=== PATIENT | male | born 1965 | race Caucasian/White ===

== ENCOUNTER 2020-10-31 14:21 | Inpatient (IN) ==
[2020-10-31] MEDS ORDERED: Acetaminophen 325 MG TABLET PO PRN (17:40)
[2020-10-31] MEDS ORDERED: Ondansetron 4 MG/2 ML VIAL IVP PRN (17:40)
[2020-10-31] MEDS ORDERED: Naloxone 0.4 MG/ML INJ IVP PRN (17:40)
[2020-10-31 17:56] LABS: ABG Base Excess -1 mEq/L (-2 to 3); ABG HCO3 25 mEq/L (21-27); ABG Oxygen Saturation 94 % (95-98); ABG PCO2 45 mmHg (35-45); ABG PH 7.35 pH Units (7.32-7.45); ABG PO2 75 mmHg (85-104); ABG TCO2 26 mEq/L (20-26)
[2020-10-31] MEDS ORDERED: Gadolinium Contrast Agent (WT Based) IV PRN (18:04)
[2020-10-31 19:02] LABS: INR 1.2
[2020-10-31 19:31] LABS: BUN/Creatinine Ratio 45 (6-26); Blood Urea Nitrogen 37 mg/dL (6-20); Calcium 9.1 mg/dL (8.6-10.3); Carbon Dioxide 20 mEq/L (23-29); Chloride 111 mEq/L (98-107); Glucose 94 mg/dL (70-105); Magnesium 1.7 mg/dL (1.6-2.6); Osmolality,Calculated 302 (280-300); Phosphorous 3.8 mg/dL (2.7-4.5); Potassium 4.1 mEq/L (3.5-5.1); Sodium 142 mEq/L (136-145); Troponin I 0.13 ng/mL (< 0.04); eGFR For African Americans > 60 (> 60); eGFR For Non-African Americans > 60 (> 60)
[2020-10-31 19:42] LABS: Phenytoin (Dilantin) 19.7 mcg/mL (10.0-20.0)
[2020-10-31] MEDS: 0.9 % Sodium Chloride 1,000 ML IVC SCH (20:29)
[2020-10-31 20:49] LABS: Basophils # 0.1 K/mcL (0.0-0.2); Basophils % 0.4 %; Eosinophils # 0.4 K/mcL (0.0-0.6); Eosinophils % 2.2 %; Hematocrit 38.6 % (37.5-50.1); Hemoglobin 12.2 g/dL (12.9-16.9); Immature Granulocytes % 0.4 % (0-4); Lymphocytes # 1.2 K/mcL (0.6-4.6); Lymphocytes % 6.6 %; Mean Corpuscular HGB Conc 31.6 g/dL (31.6-35.5); Mean Corpuscular Hemoglobin 29.8 pg (28.0-33.3); Mean Corpuscular Volume 94.4 fL (83.0-100.0); Mean Platelet Volume 9.5 fL (9.4-12.4); Monocytes # 1.6 K/mcL (0.0-1.3); Monocytes % 8.8 %; Neutrophils # 14.8 K/mcL (1.6-8.9); Platelet Count 240 K/mcL (140-400); Red Blood Count 4.09 M/mcL (4.19-5.50); Segmented Neutrophils % 81.6 %; White Blood Count 18.1 K/mcL (4.3-11.1)
[2020-11-01 01:09] LABS: Basophils # 0.1 K/mcL (0.0-0.2); Basophils % 0.4 %; Eosinophils # 0.3 K/mcL (0.0-0.6); Eosinophils % 1.6 %; Hematocrit 38.3 % (37.5-50.1); Hemoglobin 12.1 g/dL (12.9-16.9); Immature Granulocytes % 0.5 % (0-4); Lymphocytes # 1.1 K/mcL (0.6-4.6); Lymphocytes % 5.9 %; Mean Corpuscular HGB Conc 31.6 g/dL (31.6-35.5); Mean Corpuscular Volume 94.8 fL (83.0-100.0); Mean Platelet Volume 9.8 fL (9.4-12.4); Monocytes # 1.4 K/mcL (0.0-1.3); Monocytes % 7.3 %; Neutrophils # 16.3 K/mcL (1.6-8.9); Platelet Count 250 K/mcL (140-400); Red Blood Count 4.04 M/mcL (4.19-5.50); Segmented Neutrophils % 84.3 %; White Blood Count 19.3 K/mcL (4.3-11.1)
[2020-11-01 01:35] LABS: BUN/Creatinine Ratio 44 (6-26); Blood Urea Nitrogen 35 mg/dL (6-20); Calcium 9.4 mg/dL (8.6-10.3); Carbon Dioxide 21 mEq/L (23-29); Chloride 111 mEq/L (98-107); Glucose 98 mg/dL (70-105); Magnesium 1.7 mg/dL (1.6-2.6); Osmolality,Calculated 306 (280-300); Potassium 4.1 mEq/L (3.5-5.1); Sodium 144 mEq/L (136-145); Troponin I 0.06 ng/mL (< 0.04); eGFR For African Americans > 60 (> 60); eGFR For Non-African Americans > 60 (> 60)
[2020-11-01] MEDS: 0.9 % Sodium Chloride 1,000 ML IVC SCH ×2 (06:07→16:00)
[2020-11-01] MEDS ORDERED: Gadolinium Contrast Agent (WT Based) IV PRN (07:22)
[2020-11-01] MEDS: Vancomycin 1,250 MG/262.5 ML IV.SOLN IVPB SCH ×2 (08:33→19:34)
[2020-11-01] MEDS: Piperacillin/Tazobactam 3.375 GM in 0.9 % Sodium Chloride Mini Bag 100 ML IVPB SCH ×3 (08:34→23:33)
[2020-11-01] MEDS ORDERED: cefTRIAXone 1,000 MG in 0.9 % Sodium Chloride Mini Bag 100 ML IVPB SCH (09:00)
[2020-11-01] MEDS: Phenytoin 100 MG in Equashield Syringe 1 EACH IVP SCH ×2 (09:33→16:03)
[2020-11-01] MEDS: *HR* Labetalol 20 MG/4 ML SYRINGE IVP SCH ×2 (13:15→18:06)
[2020-11-01 18:46] LABS: Amphetamine Screen,Urine Negative ng/mL (Cutoff=1000); Barbiturate Screen,Urine Negative ng/mL (Cutoff=200); Benzodiazepines Screen,Urine Negative ng/mL (Cutoff=200); Cannabinoid Screen,Urine Negative ng/mL (Cutoff = 50); Cocaine Screen,Urine Negative ng/mL (Cutoff= 300); Opiate Screen,Urine Negative ng/mL (Cutoff=300); Phencyclidine Screen,Urine Negative ng/mL (Cutoff=25)
[2020-11-02] MEDS: 0.9 % Sodium Chloride 1,000 ML IVC SCH ×3 (00:06→23:49)
[2020-11-02] MEDS: Phenytoin 100 MG in Equashield Syringe 1 EACH IVP SCH ×4 (00:07→23:57)
[2020-11-02] MEDS: *HR* Labetalol 20 MG/4 ML SYRINGE IVP SCH ×5 (03:32→23:55)
[2020-11-02] MEDS: Piperacillin/Tazobactam 3.375 GM in 0.9 % Sodium Chloride Mini Bag 100 ML IVPB SCH ×3 (08:09→23:54)
[2020-11-02] MEDS: Vancomycin 1,250 MG/262.5 ML IV.SOLN IVPB SCH (08:11)
[2020-11-02] MEDS ORDERED: E-Z-PAQUE (BARIUM SULF) SUSP 1 BOTTLE PO ONE (13:33)
[2020-11-02] MEDS ORDERED: E-Z-HD (BARIUM SULF) SUSPENSION PO ONE (13:33)
[2020-11-02] MEDS ORDERED: Morphine Sulfate 2 MG/ML SYRINGE IVP ONE (13:37)
[2020-11-02] MEDS ORDERED: *HR* LORazepam 2 MG/ML VIAL IVP ONE (13:37)
[2020-11-02 20:48] LABS: Basophils # 0.1 K/mcL (0.0-0.2); Basophils % 0.5 %; Eosinophils # 0.3 K/mcL (0.0-0.6); Eosinophils % 1.6 %; Hematocrit 34.1 % (37.5-50.1); Hemoglobin 11.2 g/dL (12.9-16.9); Immature Granulocytes % 0.5 % (0-4); Lymphocytes # 1.3 K/mcL (0.6-4.6); Lymphocytes % 6.8 %; Mean Corpuscular HGB Conc 32.8 g/dL (31.6-35.5); Mean Corpuscular Hemoglobin 30.8 pg (28.0-33.3); Mean Corpuscular Volume 93.7 fL (83.0-100.0); Mean Platelet Volume 9.4 fL (9.4-12.4); Monocytes # 1.5 K/mcL (0.0-1.3); Neutrophils # 15.9 K/mcL (1.6-8.9); Platelet Count 254 K/mcL (140-400); Red Blood Count 3.64 M/mcL (4.19-5.50); Red Cell Distribution Width 14.1 % (11.5-14.5); Segmented Neutrophils % 82.6 %; White Blood Count 19.2 K/mcL (4.3-11.1)
[2020-11-02 21:07] LABS: BUN/Creatinine Ratio 37 (6-26); Blood Urea Nitrogen 23 mg/dL (6-20); Calcium 8.6 mg/dL (8.6-10.3); Carbon Dioxide 19 mEq/L (23-29); Chloride 116 mEq/L (98-107); Glucose 127 mg/dL (70-105); Magnesium 1.6 mg/dL (1.6-2.6); Osmolality,Calculated 311 (280-300); Potassium 3.1 mEq/L (3.5-5.1); Sodium 148 mEq/L (136-145); eGFR For African Americans > 60 (> 60); eGFR For Non-African Americans > 60 (> 60)
[2020-11-02] MEDS: Vancomycin 1,500 MG/265 ML IV.SOLN IVPB SCH (21:58)
[2020-11-03] MEDS: *HR* Labetalol 20 MG/4 ML SYRINGE IVP SCH ×3 (06:18→20:23)
[2020-11-03 07:02] LABS: Basophils # 0.1 K/mcL (0.0-0.2); Basophils % 0.5 %; Eosinophils # 0.4 K/mcL (0.0-0.6); Hematocrit 34.4 % (37.5-50.1); Hemoglobin 11.1 g/dL (12.9-16.9); Immature Granulocytes % 0.5 % (0-4); Lymphocytes # 1.4 K/mcL (0.6-4.6); Lymphocytes % 9.4 %; Mean Corpuscular HGB Conc 32.3 g/dL (31.6-35.5); Mean Corpuscular Hemoglobin 30.2 pg (28.0-33.3); Mean Corpuscular Volume 93.7 fL (83.0-100.0); Mean Platelet Volume 9.5 fL (9.4-12.4); Monocytes # 1.3 K/mcL (0.0-1.3); Monocytes % 8.8 %; Neutrophils # 11.4 K/mcL (1.6-8.9); Platelet Count 269 K/mcL (140-400); Red Blood Count 3.67 M/mcL (4.19-5.50); Red Cell Distribution Width 14.4 % (11.5-14.5); Segmented Neutrophils % 77.8 %; White Blood Count 14.6 K/mcL (4.3-11.1)
[2020-11-03] MEDS: Piperacillin/Tazobactam 3.375 GM in 0.9 % Sodium Chloride Mini Bag 100 ML IVPB SCH (07:21)
[2020-11-03] MEDS: Phenytoin 100 MG in Equashield Syringe 1 EACH IVP SCH ×2 (09:17→20:22)
[2020-11-03] MEDS: Vancomycin 1,500 MG/265 ML IV.SOLN IVPB SCH (09:18)
[2020-11-03] MEDS: 0.9 % Sodium Chloride 1,000 ML IVC SCH (09:26)
[2020-11-03] MEDS ORDERED: GADOBUTROL 30 MMOL/30 ML VIAL IVP ONE (11:23)
[2020-11-03] MEDS ORDERED: *HR* LORazepam 2 MG/ML VIAL IVP ONE ×2 (13:40→17:51)
[2020-11-03] MEDS ORDERED: Haloperidol Lactate 5 MG/ML VIAL IVP ONE ×2 (13:41→17:51)
[2020-11-04] MEDS: *HR* Labetalol 20 MG/4 ML SYRINGE IVP SCH ×4 (01:23→17:22)
[2020-11-04 01:53] LABS: Basophils # 0.1 K/mcL (0.0-0.2); Basophils % 0.6 %; Eosinophils # 0.6 K/mcL (0.0-0.6); Hematocrit 35.3 % (37.5-50.1); Hemoglobin 11.5 g/dL (12.9-16.9); Immature Granulocytes % 0.5 % (0-4); Lymphocytes # 1.4 K/mcL (0.6-4.6); Lymphocytes % 9.9 %; Mean Corpuscular HGB Conc 32.6 g/dL (31.6-35.5); Mean Corpuscular Hemoglobin 30.3 pg (28.0-33.3); Mean Corpuscular Volume 92.9 fL (83.0-100.0); Mean Platelet Volume 9.3 fL (9.4-12.4); Monocytes # 1.3 K/mcL (0.0-1.3); Monocytes % 9.3 %; Neutrophils # 10.4 K/mcL (1.6-8.9); Platelet Count 286 K/mcL (140-400); Red Cell Distribution Width 14.6 % (11.5-14.5); Segmented Neutrophils % 75.7 %; White Blood Count 13.8 K/mcL (4.3-11.1)
[2020-11-04 03:07] LABS: BUN/Creatinine Ratio 32 (6-26); Blood Urea Nitrogen 19 mg/dL (6-20); eGFR For African Americans > 60 (> 60); eGFR For Non-African Americans > 60 (> 60)
[2020-11-04] MEDS: Phenytoin 100 MG in Equashield Syringe 1 EACH IVP SCH ×3 (04:09→20:48)
[2020-11-04] MEDS: 0.9 % Sodium Chloride 1,000 ML IVC SCH ×3 (04:12→12:35)
[2020-11-04] MEDS: Ampicillin/Sulbactam 3,000 MG in 0.9 % Sodium Chloride Mini Bag 100 ML IVPB SCH ×2 (12:35→17:22)
[2020-11-04] MEDS: Vancomycin 1,250 MG/262.5 ML IV.SOLN IVPB SCH (19:38)
[2020-11-05] MEDS: Ampicillin/Sulbactam 3,000 MG in 0.9 % Sodium Chloride Mini Bag 100 ML IVPB SCH ×3 (00:47→11:33)
[2020-11-05] MEDS: 0.9 % Sodium Chloride 1,000 ML IVC SCH (00:47)
[2020-11-05] MEDS: *HR* Labetalol 20 MG/4 ML SYRINGE IVP SCH ×4 (00:48→18:05)
[2020-11-05] MEDS: Phenytoin 100 MG in Equashield Syringe 1 EACH IVP SCH ×3 (02:18→20:15)
[2020-11-05 05:24] LABS: Hematocrit 32.9 % (37.5-50.1); Hemoglobin 10.6 g/dL (12.9-16.9); Mean Corpuscular HGB Conc 32.2 g/dL (31.6-35.5); Mean Corpuscular Hemoglobin 30.1 pg (28.0-33.3); Mean Corpuscular Volume 93.5 fL (83.0-100.0); Mean Platelet Volume 9.3 fL (9.4-12.4); Platelet Count 296 K/mcL (140-400); Red Blood Count 3.52 M/mcL (4.19-5.50); Red Cell Distribution Width 14.8 % (11.5-14.5); White Blood Count 10.6 K/mcL (4.3-11.1)
[2020-11-05 05:37] LABS: INR 1.5; Prothrombin Time 17.3 Seconds (9.4-12.1)
[2020-11-05 05:42] LABS: BUN/Creatinine Ratio 33 (6-26); Blood Urea Nitrogen 19 mg/dL (6-20); Calcium 8.6 mg/dL (8.6-10.3); Carbon Dioxide 21 mEq/L (23-29); Chloride 122 mEq/L (98-107); Glucose 101 mg/dL (70-105); Magnesium 1.7 mg/dL (1.6-2.6); Osmolality,Calculated 324 (280-300); Potassium 2.7 mEq/L (3.5-5.1); Sodium 156 mEq/L (136-145); eGFR For African Americans > 60 (> 60); eGFR For Non-African Americans > 60 (> 60)
[2020-11-05] MEDS ORDERED: D5% in Water 1,000 ML IVC SCH (08:30)
[2020-11-05] MEDS ORDERED: Perflutren Lipid Microsphere 1.3 ML in 0.9 % Sodium Chloride 8.7 ML IVP PRN (08:36)
[2020-11-05] MEDS ORDERED: Polymyxin B Sulfate 500,000 UNIT, Sodium Chloride IRRigation 1,000 ML IR ONE (09:45)
[2020-11-05 11:18] LABS: BUN/Creatinine Ratio 33 (6-26); Blood Urea Nitrogen 19 mg/dL (6-20); Calcium 8.5 mg/dL (8.6-10.3); Carbon Dioxide 25 mEq/L (23-29); Chloride 122 mEq/L (98-107); Glucose 107 mg/dL (70-105); Osmolality,Calculated 327 (280-300); Potassium 2.8 mEq/L (3.5-5.1); Sodium 157 mEq/L (136-145); eGFR For African Americans > 60 (> 60); eGFR For Non-African Americans > 60 (> 60)
[2020-11-05] MEDS ORDERED: Potassium Chloride 40 MEQ, Lidocaine 1% 2 ML in 0.9 % Sodium Chloride 500 ML IVPB ONE (14:31)
[2020-11-05] MEDS: D5% in Water 1,000 ML IVC SCH ×2 (14:57→19:42)
[2020-11-05 15:23] LABS: BUN/Creatinine Ratio 32 (6-26); Blood Urea Nitrogen 18 mg/dL (6-20); Calcium 8.7 mg/dL (8.6-10.3); Carbon Dioxide 25 mEq/L (23-29); Chloride 120 mEq/L (98-107); Glucose 148 mg/dL (70-105); Osmolality,Calculated 325 (280-300); Sodium 155 mEq/L (136-145); eGFR For African Americans > 60 (> 60); eGFR For Non-African Americans > 60 (> 60)
[2020-11-05] MEDS ORDERED: Albumin 25% 25gram/100mL 25 GM/100 ML IV.SOLN IVPB ONE (17:56)
[2020-11-05] MEDS: Ampicillin/Sulbactam 3,000 MG in D5% in Water (Mini-Bag+) 100 ML IVPB SCH (18:04)
[2020-11-05] MEDS ORDERED: Albumin 25% 25gram/100mL 25 GM/100 ML IV.SOLN ONE (18:43)
[2020-11-06] MEDS: *HR* Labetalol 20 MG/4 ML SYRINGE IVP SCH ×2 (00:34→06:03)
[2020-11-06] MEDS: Ampicillin/Sulbactam 3,000 MG in D5% in Water (Mini-Bag+) 100 ML IVPB SCH ×5 (00:35→23:16)
[2020-11-06 00:57] LABS: Hematocrit 37.2 % (37.5-50.1); Mean Corpuscular HGB Conc 32.3 g/dL (31.6-35.5); Mean Corpuscular Hemoglobin 29.9 pg (28.0-33.3); Mean Corpuscular Volume 92.8 fL (83.0-100.0); Mean Platelet Volume 9.3 fL (9.4-12.4); Platelet Count 300 K/mcL (140-400); Red Blood Count 4.01 M/mcL (4.19-5.50); Red Cell Distribution Width 14.6 % (11.5-14.5); White Blood Count 11.7 K/mcL (4.3-11.1)
[2020-11-06 01:17] LABS: BUN/Creatinine Ratio 31 (6-26); Blood Urea Nitrogen 16 mg/dL (6-20); Carbon Dioxide 26 mEq/L (23-29); Chloride 116 mEq/L (98-107); Glucose 130 mg/dL (70-105); Osmolality,Calculated 315 (280-300); Potassium 3.2 mEq/L (3.5-5.1); Sodium 151 mEq/L (136-145); eGFR For African Americans > 60 (> 60); eGFR For Non-African Americans > 60 (> 60)
[2020-11-06 01:57] LABS: VBG HCO3 33 mEq/L (21-27); VBG PCO2 54 mmHg (41-51); VBG PH 7.39 pH Units (7.32-7.42); VBG PO2 193 mmHg (25-50)
[2020-11-06] MEDS: Phenytoin 100 MG in Equashield Syringe 1 EACH IVP SCH ×3 (03:48→21:17)
[2020-11-06] MEDS: D5% in Water 1,000 ML IVC SCH ×3 (05:28→21:18)
[2020-11-06] MEDS ORDERED: *HR* Metoprolol 5 MG/5 ML VIAL IVP ONE (06:23)
[2020-11-06] MEDS ORDERED: Potassium Chloride 40 MEQ, Lidocaine 1% 2 ML in 0.9 % Sodium Chloride 500 ML IVPB ONE (07:40)
[2020-11-06] MEDS ORDERED: Famotidine 20 MG/2 ML VIAL ONE (14:05)
[2020-11-06] MEDS ORDERED: Acetaminophen IV 1,000 MG/100 ML BAG IVPB ONE (14:05)
[2020-11-06] MEDS ORDERED: *HR* Propofol 200 MG/20 ML VIAL IVP ONE ×2 (14:22→15:04)
[2020-11-06] MEDS ORDERED: Lidocaine HCL 4 ML Topical Solution (Laryng-O-Jet Kit Sterile Pak) TP ONE (14:26)
[2020-11-06] MEDS ORDERED: Lidocaine -MPF 2% 2 ML VIAL ONE (14:26)
[2020-11-06] MEDS ORDERED: *HR* Succinylcholine 200 MG/10 ML VIAL IVP ONE (14:26)
[2020-11-06] MEDS ORDERED: *HR* FentaNYL (PF) 100 MCG/2 ML VIAL ONE (14:43)
[2020-11-07] MEDS: Phenytoin 100 MG in Equashield Syringe 1 EACH IVP SCH ×3 (03:28→20:10)
[2020-11-07] MEDS: Ampicillin/Sulbactam 3,000 MG in D5% in Water (Mini-Bag+) 100 ML IVPB SCH ×4 (05:35→23:14)
[2020-11-07] MEDS: D5% in Water 1,000 ML IVC SCH (05:35)
[2020-11-07] MEDS ORDERED: D5% in Water 1,000 ML IVC SCH (07:36)
[2020-11-07 11:14] LABS: Hematocrit 33.6 % (37.5-50.1); Hemoglobin 11.2 g/dL (12.9-16.9); Mean Corpuscular HGB Conc 33.3 g/dL (31.6-35.5); Mean Corpuscular Hemoglobin 30.8 pg (28.0-33.3); Mean Corpuscular Volume 92.3 fL (83.0-100.0); Mean Platelet Volume 9.8 fL (9.4-12.4); Platelet Count 287 K/mcL (140-400); Red Blood Count 3.64 M/mcL (4.19-5.50); Red Cell Distribution Width 14.5 % (11.5-14.5); White Blood Count 10.1 K/mcL (4.3-11.1)
[2020-11-07 11:32] LABS: BUN/Creatinine Ratio 19 (6-26); Blood Urea Nitrogen 8 mg/dL (6-20); Carbon Dioxide 31 mEq/L (23-29); Chloride 107 mEq/L (98-107); Glucose 124 mg/dL (70-105); Osmolality,Calculated 298 (280-300); Potassium 2.7 mEq/L (3.5-5.1); Sodium 144 mEq/L (136-145); eGFR For African Americans > 60 (> 60); eGFR For Non-African Americans > 60 (> 60)
[2020-11-07] MEDS: Potassium Chloride Elixir 20 MEQ/15 ML UDC GTUBE SCH ×3 (12:06→20:02)
[2020-11-07 12:33] LABS: Calcium 8.1 mg/dL (8.6-10.3)
[2020-11-08 02:25] LABS: Hematocrit 33.7 % (37.5-50.1); Hemoglobin 10.9 g/dL (12.9-16.9); Mean Corpuscular HGB Conc 32.3 g/dL (31.6-35.5); Mean Corpuscular Hemoglobin 30.2 pg (28.0-33.3); Mean Corpuscular Volume 93.4 fL (83.0-100.0); Mean Platelet Volume 9.6 fL (9.4-12.4); Platelet Count 257 K/mcL (140-400); Red Blood Count 3.61 M/mcL (4.19-5.50); Red Cell Distribution Width 14.4 % (11.5-14.5); White Blood Count 7.6 K/mcL (4.3-11.1)
[2020-11-08 02:41] LABS: Albumin 2.9 g/dL (3.5-5.7); Albumin/Globulin Ratio 1.2 (1.1-2.2); Bilirubin,Direct 0.1 mg/dL (0.0-0.2); Bilirubin,Indirect 0.3 mg/dL (0.0-1.0); Bilirubin,Total 0.4 mg/dL (0.3-1.0); Globulin 2.5 g/dL (2.4-3.5); Magnesium 1.6 mg/dL (1.6-2.6); Phosphorous 2.8 mg/dL (2.7-4.5); Total Protein 5.4 g/dL (6.4-8.9)
[2020-11-08 02:56] LABS: BUN/Creatinine Ratio 17 (6-26); Blood Urea Nitrogen 7 mg/dL (6-20); Calcium 8.1 mg/dL (8.6-10.3); Carbon Dioxide 26 mEq/L (23-29); Chloride 110 mEq/L (98-107); Glucose 105 mg/dL (70-105); Osmolality,Calculated 296 (280-300); Potassium 3.8 mEq/L (3.5-5.1); Sodium 144 mEq/L (136-145); eGFR For African Americans > 60 (> 60); eGFR For Non-African Americans > 60 (> 60)
[2020-11-08] MEDS: Phenytoin 100 MG in Equashield Syringe 1 EACH IVP SCH ×3 (05:11→23:02)
[2020-11-08] MEDS: Ampicillin/Sulbactam 3,000 MG in D5% in Water (Mini-Bag+) 100 ML IVPB SCH ×2 (05:12→14:13)
[2020-11-08] MEDS ORDERED: Polymyxin B Sulfate 500,000 UNIT, Sodium Chloride IRRigation 1,000 ML IR ONE (06:00)
[2020-11-08] MEDS ORDERED: Lidocaine -MPF 2% 5 ML VIAL SQ ONE (10:58)
[2020-11-08] MEDS ORDERED: *HR* Propofol 500 MG/50 ML BOTTLE IVP ONE (10:58)
[2020-11-08] MEDS ORDERED: *HR* Metoprolol 5 MG/5 ML VIAL IVP ONE (10:58)
[2020-11-08] MEDS ORDERED: *HR* Propofol 200 MG/20 ML VIAL IVP ONE (14:21)
[2020-11-08] MEDS ORDERED: Lidocaine -MPF 2% 2 ML VIAL ONE (14:22)
[2020-11-08] MEDS ORDERED: *HR* Succinylcholine 200 MG/10 ML VIAL IVP ONE (14:22)
[2020-11-08] MEDS ORDERED: Ondansetron 4 MG/2 ML VIAL ONE (14:22)
[2020-11-08] MEDS ORDERED: Lidocaine HCL 4 ML Topical Solution (Laryng-O-Jet Kit Sterile Pak) TP ONE (14:52)
[2020-11-08] MEDS ORDERED: *HR* FentaNYL (PF) 100 MCG/2 ML VIAL ONE (15:10)
[2020-11-08] MEDS ORDERED: *HR* Midazolam HCl 2 MG/2 ML VIAL ONE (15:10)
[2020-11-08] MEDS ORDERED: *HR* Remifentanil 1 MG VIAL IVP ONE ×2 (15:15→20:20)
[2020-11-08] MEDS ORDERED: Heparin 1,000 UNITS/500 mL 500 ML ONE (15:53)
[2020-11-08] MEDS ORDERED: Albumin Human 5% 25.0 GM/500 ML IV.SOLN ONE (16:22)
[2020-11-08] MEDS ORDERED: EPHEDrine 50 MG/ML VIAL ONE (16:23)
[2020-11-08] MEDS ORDERED: CefOXitin 2,000 MG VIAL ONE (17:01)
[2020-11-08] MEDS ORDERED: *HR* Vasopressin 20 UNIT/ML VIAL ONE (17:36)
[2020-11-08] MEDS ORDERED: ceFAZolin 2,000 MG in Water for inj. (sterile) 20 ML IVP ONE (17:45)
[2020-11-08] MEDS ORDERED: *HR* Phenylephrine 10 MG/ML VIAL ONE (19:48)
[2020-11-08] MEDS ORDERED: *HR* HYDROMORPHONE 2 MG/ML VIAL ONE (20:46)
[2020-11-08] MEDS ORDERED: Ampicillin/Sulbactam 3,000 MG in D5% in Water (Mini-Bag+) 100 ML IVPB SCH (21:00)
[2020-11-09] MEDS: *HR* OxyCODONE Oral Soln 5 MG/5 ML UD.LIQ GTUBE PRN ×2 (00:31→06:12)
[2020-11-09] MEDS ORDERED: Morphine Sulfate 2 MG/ML SYRINGE IVP ONE (02:42)
[2020-11-09 05:09] LABS: Hemoglobin 9.6 g/dL (12.9-16.9); Mean Corpuscular Hemoglobin 30.2 pg (28.0-33.3); Mean Corpuscular Volume 94.3 fL (83.0-100.0); Mean Platelet Volume 9.8 fL (9.4-12.4); Platelet Count 238 K/mcL (140-400); Red Blood Count 3.18 M/mcL (4.19-5.50); White Blood Count 10.8 K/mcL (4.3-11.1)
[2020-11-09 05:28] LABS: BUN/Creatinine Ratio 23 (6-26); Blood Urea Nitrogen 11 mg/dL (6-20); Calcium 8.1 mg/dL (8.6-10.3); Carbon Dioxide 32 mEq/L (23-29); Chloride 104 mEq/L (98-107); Glucose 120 mg/dL (70-105); Osmolality,Calculated 295 (280-300); Phosphorous 3.7 mg/dL (2.7-4.5); Potassium 3.6 mEq/L (3.5-5.1); Sodium 142 mEq/L (136-145); eGFR For African Americans > 60 (> 60); eGFR For Non-African Americans > 60 (> 60)
[2020-11-09] MEDS ORDERED: Ampicillin/Sulbactam 3,000 MG in D5% in Water (Mini-Bag+) 100 ML IVPB SCH (06:00)
[2020-11-09] MEDS: Phenytoin 100 MG in Equashield Syringe 1 EACH IVP SCH ×3 (06:10→21:08)
[2020-11-09] MEDS ORDERED: *HR* OxyCODONE Immed Rel 5 MG TABLET PO PRN (07:42)
[2020-11-09] MEDS ORDERED: *HR* HYDROcodone/Acet 5/325 mg TABLET PO PRN (07:42)
[2020-11-09] MEDS ORDERED: Ringers Solution, Lactated 1,000 ML IVC SCH (07:42)
[2020-11-09] MEDS ORDERED: Ondansetron 4 MG/2 ML VIAL IVP PRN (07:42)
[2020-11-09] MEDS ORDERED: Acetaminophen 325 MG TABLET PO PRN ×2 (07:42)
[2020-11-09] MEDS ORDERED: Naloxone 0.4 MG/ML INJ IVP PRN ×2 (07:42)
[2020-11-09] MEDS ORDERED: CeFAZolin 2 GM/120 ML BAG IVPB SCH (09:00)
[2020-11-09] MEDS ORDERED: Acetaminophen IV 1,000 MG/100 ML BAG IVPB ONE (16:31)
[2020-11-09] MEDS: Ampicillin/Sulbactam 3,000 MG in 0.9 % Sodium Chloride Mini Bag 100 ML IVPB SCH (17:56)
[2020-11-10] MEDS: Ampicillin/Sulbactam 3,000 MG in 0.9 % Sodium Chloride Mini Bag 100 ML IVPB SCH ×4 (00:55→17:00)
[2020-11-10 04:44] LABS: Troponin I 0.13 ng/mL (< 0.04)
[2020-11-10] MEDS ORDERED: Morphine Sulfate 2 MG/ML SYRINGE IVP PRN (04:54)
[2020-11-10] MEDS: Phenytoin 100 MG in Equashield Syringe 1 EACH IVP SCH ×3 (05:20→23:51)
[2020-11-10 05:39] LABS: Alanine Aminotransferase 12 Units/L (7-52); Albumin 3.2 g/dL (3.5-5.7); Albumin/Globulin Ratio 1.3 (1.1-2.2); Alkaline Phosphatase 125 Units/L (34-104); Aspartate Amino Transferase 52 Units/L (13-39); BUN/Creatinine Ratio 24 (6-26); Bilirubin,Total 0.5 mg/dL (0.3-1.0); Blood Urea Nitrogen 13 mg/dL (6-20); Calcium 8.3 mg/dL (8.6-10.3); Carbon Dioxide 29 mEq/L (23-29); Chloride 101 mEq/L (98-107); Globulin 2.4 g/dL (2.4-3.5); Glucose 139 mg/dL (70-105); Osmolality,Calculated 292 (280-300); Potassium 3.6 mEq/L (3.5-5.1); Sodium 140 mEq/L (136-145); Total Protein 5.6 g/dL (6.4-8.9); eGFR For African Americans > 60 (> 60); eGFR For Non-African Americans > 60 (> 60)
[2020-11-10 05:46] LABS: Basophils # 0.1 K/mcL (0.0-0.2); Basophils % 0.6 %; Eosinophils # 0.4 K/mcL (0.0-0.6); Hematocrit 30.5 % (37.5-50.1); Hemoglobin 9.8 g/dL (12.9-16.9); Immature Granulocytes % 0.7 % (0-4); Lymphocytes # 1.3 K/mcL (0.6-4.6); Lymphocytes % 8.8 %; Mean Corpuscular HGB Conc 32.1 g/dL (31.6-35.5); Mean Corpuscular Hemoglobin 30.3 pg (28.0-33.3); Mean Corpuscular Volume 94.4 fL (83.0-100.0); Mean Platelet Volume 9.9 fL (9.4-12.4); Monocytes # 1.2 K/mcL (0.0-1.3); Monocytes % 7.8 %; Neutrophils # 11.7 K/mcL (1.6-8.9); Platelet Count 222 K/mcL (140-400); Red Blood Count 3.23 M/mcL (4.19-5.50); Red Cell Distribution Width 14.2 % (11.5-14.5); Segmented Neutrophils % 79.1 %; White Blood Count 14.8 K/mcL (4.3-11.1)
[2020-11-10] MEDS: Nitroglycerin 0.4 MG TAB.SUBL SL PRN ×3 (08:21→14:43)
[2020-11-10] MEDS ORDERED: Isovue-370 500 ML BOTTLE IVP ONE (11:34)
[2020-11-11] MEDS: Nitroglycerin 0.4 MG TAB.SUBL SL PRN (00:03)
[2020-11-11] MEDS: Ampicillin/Sulbactam 3,000 MG in 0.9 % Sodium Chloride Mini Bag 100 ML IVPB SCH ×3 (00:46→16:07)
[2020-11-11 01:33] LABS: Basophils # 0.1 K/mcL (0.0-0.2); Basophils % 0.4 %; Eosinophils # 0.5 K/mcL (0.0-0.6); Eosinophils % 3.2 %; Hematocrit 27.9 % (37.5-50.1); Immature Granulocytes % 0.9 % (0-4); Lymphocytes # 1.5 K/mcL (0.6-4.6); Lymphocytes % 9.3 %; Mean Corpuscular HGB Conc 32.3 g/dL (31.6-35.5); Mean Corpuscular Hemoglobin 30.5 pg (28.0-33.3); Mean Corpuscular Volume 94.6 fL (83.0-100.0); Mean Platelet Volume 10.2 fL (9.4-12.4); Monocytes # 1.4 K/mcL (0.0-1.3); Monocytes % 9.3 %; Platelet Count 241 K/mcL (140-400); Red Blood Count 2.95 M/mcL (4.19-5.50); Red Cell Distribution Width 14.3 % (11.5-14.5); Segmented Neutrophils % 76.9 %; White Blood Count 15.5 K/mcL (4.3-11.1)
[2020-11-11 01:50] LABS: BUN/Creatinine Ratio 25 (6-26); Blood Urea Nitrogen 13 mg/dL (6-20); Calcium 8.4 mg/dL (8.6-10.3); Carbon Dioxide 34 mEq/L (23-29); Chloride 100 mEq/L (98-107); Glucose 176 mg/dL (70-105); Osmolality,Calculated 296 (280-300); Potassium 3.2 mEq/L (3.5-5.1); Sodium 141 mEq/L (136-145); eGFR For African Americans > 60 (> 60); eGFR For Non-African Americans > 60 (> 60)
[2020-11-11 02:06] LABS: Troponin I 0.15 ng/mL (< 0.04)
[2020-11-11] MEDS ORDERED: *HR* LORazepam 2 MG/ML VIAL IVP ONE (02:38)
[2020-11-11] MEDS: Phenytoin 100 MG in Equashield Syringe 1 EACH IVP SCH ×3 (06:15→22:11)
[2020-11-11 13:43] LABS: Adenovirus Not Detected (Not Detect); Bordetella Pertussis Not Detected (Not Detect); Chlamydophila pneumoniae Not Detected (Not Detect); Coronavirus 229E Not Detected (Not Detect); Coronavirus HKU1 Not Detected (Not Detect); Coronavirus NL63 Not Detected (Not Detect); Coronavirus OC43 Not Detected (Not Detect); Human Metapneumovirus Not Detected (Not Detect); Human Rhinovirus/Enterovirus Not Detected (Not Detect); Influenza A Subtype 2009 H1 Not Detected (Not Detect); Influenza B Not Detected (Not Detect); Mycoplasma pneumoniae Not Detected (Not Detect); Parainfluenza Virus 1 Not Detected (Not Detect); Parainfluenza Virus 2 Not Detected (Not Detect); Parainfluenza Virus 3 Not Detected (Not Detect); Parainfluenza Virus 4 Not Detected (Not Detect); Respiratory Syncytial Virus Not Detected (Not Detect); SARS-CoV-2 Not Detected (Not Detect)
[2020-11-11] MEDS: Vancomycin 1,500 MG/265 ML IV.SOLN IVPB SCH (15:07)
[2020-11-11] MEDS: Piperacillin/Tazobactam 3.375 GM in 0.9 % Sodium Chloride Mini Bag 100 ML IVPB SCH ×2 (17:02→22:10)
[2020-11-12] MEDS: Vancomycin 1,500 MG/265 ML IV.SOLN IVPB SCH ×2 (02:25→14:15)
[2020-11-12] MEDS: Piperacillin/Tazobactam 3.375 GM in 0.9 % Sodium Chloride Mini Bag 100 ML IVPB SCH ×3 (05:12→22:21)
[2020-11-12] MEDS: Phenytoin 100 MG in Equashield Syringe 1 EACH IVP SCH ×3 (06:02→22:22)
[2020-11-12] MEDS ORDERED: Isovue-370 500 ML BOTTLE IVP ONE ×2 (07:11→09:15)
[2020-11-12 10:41] LABS: Basophils # 0.1 K/mcL (0.0-0.2); Basophils % 0.4 %; Eosinophils # 0.5 K/mcL (0.0-0.6); Hematocrit 27.4 % (37.5-50.1); Immature Granulocytes % 0.6 % (0-4); Lymphocytes # 1.5 K/mcL (0.6-4.6); Lymphocytes % 11.4 %; Mean Corpuscular HGB Conc 32.8 g/dL (31.6-35.5); Mean Corpuscular Hemoglobin 31.3 pg (28.0-33.3); Mean Corpuscular Volume 95.1 fL (83.0-100.0); Monocytes # 1.1 K/mcL (0.0-1.3); Monocytes % 8.8 %; Neutrophils # 9.7 K/mcL (1.6-8.9); Platelet Count 300 K/mcL (140-400); Red Blood Count 2.88 M/mcL (4.19-5.50); Red Cell Distribution Width 14.4 % (11.5-14.5); Segmented Neutrophils % 74.8 %
[2020-11-12 10:54] LABS: Blood Urea Nitrogen 11 mg/dL (6-20); Calcium 8.2 mg/dL (8.6-10.3); Carbon Dioxide 37 mEq/L (23-29); Chloride 98 mEq/L (98-107); Glucose 106 mg/dL (70-105); Osmolality,Calculated 286 (280-300); Potassium 3.3 mEq/L (3.5-5.1); Sodium 138 mEq/L (136-145)
[2020-11-12] MEDS: Fluconazole 400 MG/200 ML 400 MG/200 ML BAG IVPB SCH (11:03)
[2020-11-12 11:38] LABS: BUN/Creatinine Ratio 22 (6-26); eGFR For African Americans > 60 (> 60); eGFR For Non-African Americans > 60 (> 60)
[2020-11-12 23:41] LABS: Adenovirus F 40/41 PCR Not detected (Not detect); Astrovirus PCR Not detected (Not detect); C.difficile Toxin A/B Gene PCR Not detected (Not detect); Campylobacter by PCR Not detected (Not detect); Cryptosporidium by PCR Not detected (Not detect); Cyclospora cayetanensis PCR Not detected (Not detect); E. coli O157 by PCR Not detected (Not detect); Entamoeba histolytica PCR Not detected (Not detect); Enteroaggregative E.coli(EAEC) Not detected (Not detect); Enteropathogenic E.coli(EPEC) Not detected (Not detect); Enterotoxigenic E.coli (ETEC) Not detected (Not detect); Giardia lamblia PCR Not detected (Not detect); Norovirus GI/GII PCR Not detected (Not detect); Plesiomonas shigelloides PCR Not detected (Not detect); Rotavirus A PCR Not detected (Not detect); Salmonella PCR Not detected (Not detect); Sapovirus PCR Not detected (Not detect); Shig/EnteroinvasiveE coli EIEC Not detected (Not detect); Shigalike tox-prod E coli STEC Not detected (Not detect); Vibrio PCR Not detected (Not detect); Vibrio cholerae PCR Not detected (Not detect); Yersinia enterocolitica PCR Not detected (Not detect)
[2020-11-13] MEDS: Vancomycin 1,500 MG/265 ML IV.SOLN IVPB SCH ×2 (02:21→13:54)
[2020-11-13 05:20] LABS: Basophils # 0.1 K/mcL (0.0-0.2); Basophils % 0.4 %; Eosinophils # 0.7 K/mcL (0.0-0.6); Eosinophils % 5.7 %; Hemoglobin 8.4 g/dL (12.9-16.9); Immature Granulocytes % 0.5 % (0-4); Lymphocytes # 1.2 K/mcL (0.6-4.6); Lymphocytes % 9.3 %; Mean Corpuscular HGB Conc 31.1 g/dL (31.6-35.5); Mean Corpuscular Hemoglobin 29.6 pg (28.0-33.3); Mean Corpuscular Volume 95.1 fL (83.0-100.0); Monocytes # 1.1 K/mcL (0.0-1.3); Monocytes % 8.8 %; Neutrophils # 9.3 K/mcL (1.6-8.9); Platelet Count 361 K/mcL (140-400); Red Blood Count 2.84 M/mcL (4.19-5.50); Red Cell Distribution Width 14.4 % (11.5-14.5); Segmented Neutrophils % 75.3 %; White Blood Count 12.3 K/mcL (4.3-11.1)
[2020-11-13 05:37] LABS: BUN/Creatinine Ratio 16 (6-26); Blood Urea Nitrogen 8 mg/dL (6-20); Calcium 8.1 mg/dL (8.6-10.3); Carbon Dioxide 35 mEq/L (23-29); Chloride 100 mEq/L (98-107); Glucose 158 mg/dL (70-105); Magnesium 1.6 mg/dL (1.6-2.6); Osmolality,Calculated 290 (280-300); Phosphorous 2.1 mg/dL (2.7-4.5); Potassium 3.2 mEq/L (3.5-5.1); Sodium 139 mEq/L (136-145); eGFR For African Americans > 60 (> 60); eGFR For Non-African Americans > 60 (> 60)
[2020-11-13] MEDS: Piperacillin/Tazobactam 3.375 GM in 0.9 % Sodium Chloride Mini Bag 100 ML IVPB SCH ×3 (05:50→21:58)
[2020-11-13] MEDS: Phenytoin 100 MG in Equashield Syringe 1 EACH IVP SCH ×3 (08:29→21:57)
[2020-11-13] MEDS: Fluconazole 400 MG/200 ML 400 MG/200 ML BAG IVPB SCH (08:30)
[2020-11-13] MEDS ORDERED: Potassium Phosphate 44 MEQ in 0.9 % Sodium Chloride 250 ML IVPB ONE (14:30)
[2020-11-14] MEDS: Phenytoin 100 MG in Equashield Syringe 1 EACH IVP SCH (06:18)
[2020-11-14] MEDS: Piperacillin/Tazobactam 3.375 GM in 0.9 % Sodium Chloride Mini Bag 100 ML IVPB SCH ×2 (06:19→15:25)
[2020-11-14] MEDS: Phenytoin Oral Susp 100 MG/4 ML UDC GTUBE SCH ×2 (10:21→17:27)
[2020-11-14 16:43] LABS: Basophils # 0.1 K/mcL (0.0-0.2); Basophils % 0.4 %; Eosinophils # 0.7 K/mcL (0.0-0.6); Eosinophils % 5.4 %; Hematocrit 25.6 % (37.5-50.1); Hemoglobin 8.1 g/dL (12.9-16.9); Immature Granulocytes % 0.7 % (0-4); Lymphocytes # 1.6 K/mcL (0.6-4.6); Mean Corpuscular HGB Conc 31.6 g/dL (31.6-35.5); Mean Corpuscular Hemoglobin 30.2 pg (28.0-33.3); Mean Corpuscular Volume 95.5 fL (83.0-100.0); Mean Platelet Volume 9.4 fL (9.4-12.4); Monocytes # 0.9 K/mcL (0.0-1.3); Monocytes % 6.4 %; Platelet Count 411 K/mcL (140-400); Red Blood Count 2.68 M/mcL (4.19-5.50); Red Cell Distribution Width 14.6 % (11.5-14.5); Segmented Neutrophils % 75.1 %; White Blood Count 13.2 K/mcL (4.3-11.1)
[2020-11-14 17:05] LABS: BUN/Creatinine Ratio 16 (6-26); Blood Urea Nitrogen 9 mg/dL (6-20); Calcium 8.3 mg/dL (8.6-10.3); Carbon Dioxide 35 mEq/L (23-29); Chloride 101 mEq/L (98-107); Glucose 137 mg/dL (70-105); Magnesium 1.7 mg/dL (1.6-2.6); Osmolality,Calculated 295 (280-300); Phosphorous 2.7 mg/dL (2.7-4.5); Potassium 3.6 mEq/L (3.5-5.1); Sodium 142 mEq/L (136-145); eGFR For African Americans > 60 (> 60); eGFR For Non-African Americans > 60 (> 60)
[2020-11-15] MEDS: Phenytoin Oral Susp 100 MG/4 ML UDC GTUBE SCH ×3 (00:20→15:51)
[2020-11-15 06:39] LABS: BUN/Creatinine Ratio 17 (6-26); Blood Urea Nitrogen 9 mg/dL (6-20); Calcium 8.7 mg/dL (8.6-10.3); Carbon Dioxide 35 mEq/L (23-29); Chloride 101 mEq/L (98-107); Glucose 136 mg/dL (70-105); Magnesium 1.8 mg/dL (1.6-2.6); Osmolality,Calculated 291 (280-300); Potassium 3.9 mEq/L (3.5-5.1); Sodium 140 mEq/L (136-145); eGFR For African Americans > 60 (> 60); eGFR For Non-African Americans > 60 (> 60)
[2020-11-15 12:12] LABS: Basophils # 0.1 K/mcL (0.0-0.2); Basophils % 0.4 %; Eosinophils # 0.7 K/mcL (0.0-0.6); Hematocrit 27.6 % (37.5-50.1); Hemoglobin 8.6 g/dL (12.9-16.9); Immature Granulocytes % 0.7 % (0-4); Lymphocytes # 1.4 K/mcL (0.6-4.6); Lymphocytes % 11.6 %; Mean Corpuscular HGB Conc 31.2 g/dL (31.6-35.5); Mean Corpuscular Hemoglobin 30.3 pg (28.0-33.3); Mean Corpuscular Volume 97.2 fL (83.0-100.0); Mean Platelet Volume 10.1 fL (9.4-12.4); Monocytes # 0.9 K/mcL (0.0-1.3); Monocytes % 7.5 %; Neutrophils # 9.1 K/mcL (1.6-8.9); Platelet Count 478 K/mcL (140-400); Red Blood Count 2.84 M/mcL (4.19-5.50); Red Cell Distribution Width 14.6 % (11.5-14.5); Segmented Neutrophils % 73.8 %; White Blood Count 12.3 K/mcL (4.3-11.1)
[2020-11-16] MEDS: Phenytoin Oral Susp 100 MG/4 ML UDC GTUBE SCH ×3 (00:35→17:53)
[2020-11-16] MEDS: Nystatin POWDER 30 GM BOTTLE TP SCH ×2 (10:30→21:53)
[2020-11-17] MEDS: Phenytoin Oral Susp 100 MG/4 ML UDC GTUBE SCH ×2 (00:46→08:43)
[2020-11-17] MEDS: Nystatin POWDER 30 GM BOTTLE TP SCH (08:45)
[2020-11-17 10:50] VITALS: BP 147/83; PULSE 97; TEMP 97.8; O2SAT 96
== END 2020-11-17 13:00 | DRG 853 ==
LOC: 3NENU → SUATTDRO 17:15 → 2NNU 19:08 → SUATTDRO 11-02 12:52 → 2ANU 11-04 11:54 → 3NENU 11-08 16:50
PROVIDERS: ADMIT Pharmacist; ATTEND Student in an Organized Health Care Education/Training Program